=== PATIENT | male | born 1950 | race African-American/Black ===

== ENCOUNTER 2017-07-15 15:51 | Emergency (ER) | payer MEDICARE, OTHER ==
[~2017-07-15] VITALS: Ht 182.9 cm; Wt 83.9 kg
[2017-07-15] MEDS ORDERED: LIDOCAINE 1% HCL (LOCAL ANESTH.) INJ 20ML MDV ONE (17:15)
[2017-07-15] MEDS: LIDOCAINE 1% HCL (LOCAL ANESTH.) INJ 20ML MDV IJ ONE ×2 (17:53→17:54)
[2017-07-15] MEDS ORDERED: cefTRIAXone SOD 1,000 MG VL ONE (18:11)
[2017-07-15 18:13] VITALS: BP 128/85
[2017-07-15] MEDS ORDERED: cefTRIAXone W LIDOCAINE 1 GM IM IM ONE (18:15)
== END 2017-07-15 18:38 | disposition home or self-care (01) ==
LOC: ER 15:56
DX: S01.81XA Laceration without foreign body of other part of head, initial encounter (principal); E11.9 Type 2 diabetes mellitus without complications; M19.90 Unspecified osteoarthritis, unspecified site; F17.210 Nicotine dependence, cigarettes, uncomplicated; W20.8XXA Other cause of strike by thrown, projected or falling object, initial encounter; Y93.89 Activity, other specified; Y92.89 Other specified places as the place of occurrence of the external cause; Y99.8 Other external cause status
CPT/HCPCS: 12013; 70450; 96372; 99284; J0696; J2001

== ENCOUNTER 2017-07-18 16:44 | Emergency (ER) | payer MEDICARE, OTHER ==
[~2017-07-18] VITALS: Ht 180.3 cm; Wt 79.8 kg
[2017-07-18 17:40] LABS: Basophils # (auto) 0 uL; Basophils % (auto) 0.3 % (0.0-2.0); Eosinophils # (auto) 0 uL; Eosinophils % (auto) 0.2 % (0.0-7.0); Hematocrit 47.9 % (41.0-53.0); Lymphocytes % (auto) 11.4 % (10.0-50.0); Mean Corpuscular Hemoglobin 29.7 pg (28.0-32.0); Mean Corpuscular Hgb Conc. 33.5 g/dL (32.0-36.0); Mean Corpuscular Volume 88.7 fL (80.0-100.0); Monocytes # (auto) 0.4 uL; Monocytes % (auto) 4.1 % (0.0-12.0); Neutrophils # (auto) 7.5 uL; Nucleated Red Blood Cells % 0.1 %; Platelet Count (auto) 243 10^3/uL (140-450); White Blood Cell 8.9 10^3/uL (4.4-10.8)
[2017-07-18 18:17] LABS: Albumin 3.9 g/dL (3.4-5.0); Alkaline Phosphatase 61 U/L (45-117); Anion Gap 9 (5-15); Aspartate Aminotransferase 34 U/L (15-37); BUN/Creatinine Ratio 29.2; Bilirubin, Total 0.5 mg/dL (0.2-1.0); Blood Urea Nitrogen 21 mg/dL (7-18); Carbon Dioxide 25 mmol/L (21-32); Chloride 103 mmol/L (98-107); GFR African American 140 mL/min; GFR Non-African American 116 mL/min; Glucose 134 mg/dL (74-106); Magnesium 2.1 mg/dL (1.6-2.6); Potassium 3.6 mmol/L (3.5-5.1); Sodium 137 mmol/L (136-145); Total Protein 7.9 g/dL (6.4-8.2)
[2017-07-18 21:34] LABS: Urine Bilirubin Negative (Negative); Urine Blood Negative /uL (Negative); Urine Color Yellow (Yellow); Urine Glucose Normal (Normal); Urine Ketone 1+ (Negative); Urine Mucus FEW (None Seen); Urine Nitrite Negative (Negative); Urine RBC 1 /hpf (0 - 3); Urine Squamous Epithelial Cell FEW /hpf (<5)
[2017-07-18 22:04] VITALS: BP 154/75
[2017-07-18 22:17] LABS: Allen Test Yes; Base Excess -0.2 mmol/L (-2.0-2.0); Blood 02Sat 94.5 % (96-100); Blood COHb 1.6 % (0.5-1.5); Blood MetHb 0.1 % (0.0-1.5); HCO3 21.8 mmol/L (22-26.0); HHb 5.4 % (0.0-5.0); MODE ROOM AIR; O2Hb 92.9 % (94.0-97.0); PCO2 29.4 mmHg (35.0-45.0); PCO2(T) 29.4 mmHg (35.0-45.0); PO2 73.9 mmHg (80.0-100.0); PO2(T) 73.9 mmHg (80.0-100.0); Sample Type Arterial; pH 7.488 (7.350-7.450)
== END 2017-07-19 00:35 | disposition left against medical advice (07) ==
LOC: ER 16:49
DX: G45.9 Transient cerebral ischemic attack, unspecified (principal); R42 Dizziness and giddiness; R53.1 Weakness; R19.7 Diarrhea, unspecified; R05 Cough; M19.90 Unspecified osteoarthritis, unspecified site; E11.9 Type 2 diabetes mellitus without complications; F17.210 Nicotine dependence, cigarettes, uncomplicated
CPT/HCPCS: 36415; 36600; 70450; 71020; 80053; 81001; 82805; 83735; 84443; 84484; 85025; 87045; 87899; 93005

== ENCOUNTER 2017-08-16 15:33 | Emergency (ER) | payer MEDICARE, OTHER ==
[~2017-08-16] VITALS: Ht 182.9 cm; Wt 81.6 kg
[2017-08-16 17:08] VITALS: BP 132/72
== END 2017-08-16 17:36 | disposition home or self-care (01) ==
LOC: ER 15:39
DX: S01.81XD Laceration without foreign body of other part of head, subsequent encounter (principal); F17.210 Nicotine dependence, cigarettes, uncomplicated; M19.90 Unspecified osteoarthritis, unspecified site; E11.9 Type 2 diabetes mellitus without complications; Z48.02 Encounter for removal of sutures

== ENCOUNTER 2019-04-19 09:20 | Emergency (ER) | payer MEDICARE, OTHER ==
[~2019-04-19] VITALS: Ht 182.9 cm; Wt 81.6 kg
[2019-04-19] MEDS ORDERED: SODIUM CHLORIDE 0.9% 1,000 ML IV ONE ×2 (09:31)
[2019-04-19 10:15] LABS: Basophils # (auto) 0.1 uL; Basophils % (auto) 0.7 % (0.0-2.0); Eosinophils # (auto) 0.1 uL; Hematocrit 51.5 % (41.0-53.0); Hemoglobin 16.9 g/dL (13.5-17.5); Lymphocytes # (auto) 2.5 uL; Lymphocytes % (auto) 25.3 % (10.0-50.0); Mean Corpuscular Hemoglobin 28.3 pg (28.0-32.0); Mean Corpuscular Hgb Conc. 32.8 g/dL (32.0-36.0); Mean Corpuscular Volume 86.1 fL (80.0-100.0); Monocytes # (auto) 0.4 uL; Monocytes % (auto) 3.8 % (0.0-12.0); Neutrophils % (auto) 69.2 % (37.0-80.0); Platelet Count (auto) 260 10^3/uL (140-450); Red Blood Cells 5.98 10^6/uL (4.5-5.90); Red Cell Distribution Width 13.7 % (11.8-14.3); White Blood Cell 10.1 10^3/uL (4.4-10.8)
[2019-04-19 10:34] LABS: Albumin 3.8 g/dL (3.4-5.0); Anion Gap 7 (5-15); Blood Urea Nitrogen 15 mg/dL (7-18); Calcium 8.9 mg/dL (8.5-10.1); Carbon Dioxide 25 mmol/L (21-32); Chloride 104 mmol/L (98-107); Potassium 4.4 mmol/L (3.5-5.1); Sodium 136 mmol/L (136-145)
[2019-04-19 10:42] LABS: Alanine Aminotransferase 64 U/L (16-61); Alkaline Phosphatase 79 U/L (45-117); Aspartate Aminotransferase 46 U/L (15-37); BUN/Creatinine Ratio 16.9; Bilirubin, Total 0.5 mg/dL (0.2-1.0); GFR African American 109 mL/min; GFR Non-African American 90 mL/min; Glucose 160 mg/dL (74-106); Total Protein 8.1 g/dL (6.4-8.2)
[2019-04-19 12:37] LABS: Urine Bacteria NONE SEEN /hpf (None Seen); Urine Blood Negative /uL (Negative); Urine Mucus FEW (None Seen); Urine Specific Gravity 1.017 (1.001-1.035); Urine WBC <1 /hpf (0 - 3)
[2019-04-19 15:12] VITALS: BP 114/75
== END 2019-04-19 15:11 | disposition home or self-care (01) ==
LOC: ER 09:21
DX: K80.80 Other cholelithiasis without obstruction (principal); M19.90 Unspecified osteoarthritis, unspecified site; E11.9 Type 2 diabetes mellitus without complications; F17.210 Nicotine dependence, cigarettes, uncomplicated
CPT/HCPCS: 36415; 74176; 80053; 81001; 84484; 85025; 99284; J7030

== ENCOUNTER 2023-06-20 15:18 | Inpatient (IN) | payer MEDICARE, OTHER ==
[~2023-06-20] VITALS: Ht 180.3 cm; Wt 79.5 kg
[2023-06-20] MEDS ORDERED: HYDROmorphone HCL 2 MG/ML VL/or syr IV ONE (16:00)
[2023-06-20] MEDS ORDERED: PANTOPRAZOLE 40 MG/10 ML VIAL INJ IV ONE (16:00)
[2023-06-20] MEDS ORDERED: ONDANSETRON HCL 4 MG/2 ML VIAL IV ONE (16:00)
[2023-06-20] MEDS ORDERED: SODIUM CHLORIDE 0.9% 1,000 ML IVB ONE (16:00)
[2023-06-20 16:18] VITALS: PULSE 105; RESP 20; TEMP 98.4; O2SAT 97
[2023-06-20 16:25] LABS: Basophils # (auto) 0 10 ^3/uL (0-0.2); Basophils % (auto) 0.3 % (0.0-2.0); Eosinophils # (auto) 0 10 ^3/uL (0-0.8); Hematocrit 47.4 % (41.0-53.0); Hemoglobin 15.7 g/dL (13.5-17.5); Lymphocytes # (auto) 1.5 10 ^3/uL (0.4-5.4); Lymphocytes % (auto) 12.4 % (10.0-50.0); Mean Corpuscular Hemoglobin 28.5 pg (28.0-32.0); Mean Corpuscular Volume 86.3 fL (80.0-100.0); Monocytes # (auto) 0.4 10 ^3/uL (0-1.3); Monocytes % (auto) 3.3 % (0.0-12.0); Neutrophils # (auto) 10.1 10 ^3/uL (1.6-8.6); Red Cell Distribution Width 13.3 % (11.8-14.3)
[2023-06-20 16:41] LABS: INR 1.09 (0.9-1.15); Partial Thromboplastin Time 28.8 SEC (24.5-34.5); Prothrombin Time 11.4 sec (9.3-11.8)
[2023-06-20 16:46] LABS: Alanine Aminotransferase 187 U/L (7-40); Albumin 4.9 g/dL (3.2-4.8); Alkaline Phosphatase 211 U/L (46-116); Anion Gap 10 (5-15); Aspartate Aminotransferase 219 U/L (13-40); Blood Urea Nitrogen 13 mg/dL (9-23); Calcium 9.8 mg/dL (8.7-10.4); Carbon Dioxide 23 mmol/L (20-30); Chloride 102 mmol/L (98-107); Glucose 280 mg/dL (74-106); Lipase 67 U/L (12-53); Sodium 135 mmol/L (136-145)
[2023-06-20 16:47] LABS: Bilirubin, Total 4.5 mg/dL (0.2-1.0); Total Protein 7.7 g/dL (5.7-8.2)
[2023-06-20] MEDS ORDERED: IOHEXOL 300 MG/ML 100ML BOTTLE IJ ONE (16:49)
[2023-06-20 19:45] VITALS: PULSE 91; RESP 14; O2SAT 93
[2023-06-20] MEDS ORDERED: hydrALAZINE HCL 20 MG/ML VL IV PRN (21:15)
[2023-06-20] MEDS ORDERED: SODIUM CHLORIDE 0.9% 1,000 ML IV SCH (21:15)
[2023-06-20] MEDS ORDERED: DOCUSATE SOD 100 MG CAP PO PRN (21:15)
[2023-06-20] MEDS ORDERED: DEXTROSE (50%) 50ML SYRG IV PRN (21:15)
[2023-06-20] MEDS ORDERED: LORazepam 2MG/ML-1ML VIAL IV PRN (21:15)
[2023-06-20] MEDS ORDERED: ONDANSETRON HCL 4 MG/2 ML VIAL IV PRN (21:15)
[2023-06-20] MEDS ORDERED: MORPHINE SULFATE INJ 2 MG/ml SYRG IV PRN (21:15)
[2023-06-20] MEDS ORDERED: PANTOPRAZOLE 40 MG/10 ML VIAL INJ IV SCH (22:00)
[2023-06-20] MEDS: PIPERACILLIN-TAZOB 3.375GM 100 ML IV ONE ×2 (22:31→22:35)
[2023-06-20 22:56] LABS: INR 1.07 (0.9-1.15); Prothrombin Time 11.2 sec (9.3-11.8)
[2023-06-21] MEDS ORDERED: ACCU-CHEK COMFORT CURVE STRIP VI SCH
[2023-06-21] MEDS ORDERED: InsuLIN REG 1unit/0.01ml Soln (100units/ml) SC SCH
[2023-06-21 04:00] VITALS: BP 115/85; PULSE 88; RESP 20; O2SAT 97
[2023-06-21] MEDS ORDERED: PIPERACILLIN-TAZOB 3.375GM 100 ML IV SCH (06:00)
[2023-06-23 10:49] LABS: Hepatitis B Surface Antigen Negative (Negative)
[2023-06-23 11:10] LABS: Hepatitis A Ab IgM Negative
[2023-06-23 11:11] LABS: Hepatitis B Core IgM Negative
[2023-06-23 15:45] LABS: Hepatitis C Antibody Positive (Negative)
== END 2023-06-21 05:35 | disposition left against medical advice (07) ==
LOC: ER 15:18 → TELE 21:44
PROVIDERS: ADMIT Nurse Practitioner Family; ATTEND Nurse Practitioner Family
DX: K80.20 Calculus of gallbladder without cholecystitis without obstruction (principal); K85.90 Acute pancreatitis without necrosis or infection, unspecified; K57.31 Diverticulosis of large intestine without perforation or abscess with bleeding; K56.7 Ileus, unspecified; K76.0 Fatty (change of) liver, not elsewhere classified; E87.1 Hypo-osmolality and hyponatremia; E11.9 Type 2 diabetes mellitus without complications; F10.10 Alcohol abuse, uncomplicated; F17.210 Nicotine dependence, cigarettes, uncomplicated; I10 Essential (primary) hypertension; K52.9 Noninfective gastroenteritis and colitis, unspecified; Z53.29 Procedure and treatment not carried out because of patient's decision for other reasons; M19.90 Unspecified osteoarthritis, unspecified site; Z71.6 Tobacco abuse counseling
CPT/HCPCS: 36415; 71045; 74177; 76705; 80053; 80074; 80320; 83036; 83690; 83735; 84484; 85025; 85610; 85730; 86850; 86900; 86901; C9113; G0378; J2405; J2543